=== PATIENT | male | born 1950 | race Caucasian/White ===

== ENCOUNTER 2020-03-20 13:00 | Outpatient (RCR) | payer MEDICARE, SELFPAY ==
--- NOTE | 2020-03-07 15:41 | MHC.PT.EP ---
[facility] [place] [facility] [place] [facility] [place] [facility] [address] Deana Rainey [address] [phone] F: [phone] F: [phone] F: [phone] F: [phone] Physical Therapy Plan of Care Date of Evaluation: 03/06/20 Date of Surgery: Pt fell October 28. No surgery Diagnosis: left hip pain, low back pain, and anterior thigh pain Assessment: The patient arrived reporting left hip pain after a fall. He had a right on right sacral torsion, and a left anterior inominant. In addition he had an extension directional preference using a [employer] assessment. The patient likely has a small posterolateral derangement or a rotatated facet joint causing a pinched nerve in the L1-3 area. Pt is a good candidate for skilled PT. He has decreased trunk and hip mobility and he will benefit from a stretching program as well. Frequency and Duration: The patient will be seen 2x/week x 4 weeks. Short Term Goals: -Pt to able to demonstrate proper sitting posture with the use of a lumbar roll to decrease aggravating factors. - Pt to be able to demonstrate proper posture for common leisure activities such as crocheting and phone/tablet use. 2 weeks - For the patient to demonstrate proper upright sitting posture with use of the lumbar roll to improve compliance and carryover. [employer] Goals: 4 weeks - The patient to demonstrate proper lifting mechanics for household chore activities to show improved functional mobility. 4 weeks - The patient to report no leg or hip pain in order to show centralization of pain and reduction of lumbar derangement 4 weeks - Pt to be able to demonstrate self management of lumbar pain by demonstration of HEP. Treatment Plan: Modalities to reduce pain, spasms and effusion. Manual therapy to restore motion and function. Therapeutic exercise to improve strength and flexibility. Neuromuscular re-education for posture and balance. Therapeutic activities to return to functional activities of daily living. Please sign and return to therapist. Thank you for your referral.
--- NOTE | 2020-03-20 13:32 | MHC.PT.DC ---
[facility] [place] [facility] [place] [facility] [place] [facility] [address] Deana Rainey [address] [phone] F: [phone] F: [phone] F: [phone] F: [phone] Physical Therapy Discharge Report Diagnosis: left hip pain, low back pain, and anterior thigh pain Date of Surgery: Pt fell October 28. No surgery Date of Evaluation: 03/06/20 Date of Discharge: Treatments to Date: 4 Cancellations to Date: 0 No Shows to Date: 0 Discharge Status: Achieved Goals Improved Function Independent with HEP Discharge Summary: Pt remained pain free throughout the session. He tolerated a progression of trunk and back strengthening without pain exacerbation. Pt asked to continue BARNEY or REIL. Pt will be d/c from skilled PT due to reaching his goals. He is independent with HEP. Electronically signed by: Hellen Waggoner PT DPT Please sign and return to therapist. Thank you for your referral.
== END 2020-03-20 13:40 | disposition other institution (70) ==
LOC: HO.PT 13:00
PROVIDERS: PCP Physician Assistant; Visit Provider Physician Assistant
DX: M51.9 Unspecified thoracic, thoracolumbar and lumbosacral intervertebral disc disorder (principal); M70.62 Trochanteric bursitis, left hip
CPT/HCPCS: 97110; 97112; 97140; 97162

== ENCOUNTER 2020-04-02 14:23 | Outpatient (REF) | payer MEDICARE, SELFPAY | END 2020-04-02 14:24 | disposition home or self-care (01) | LOC: HO.LAB 14:23 | PROVIDERS: Visit Provider Internal Medicine | DX: Z20.822 Contact with and (suspected) exposure to COVID-19 (principal) | CPT/HCPCS: 36415; C9803; U0003 ==